=== PATIENT | male | born 1975 | race African-American/Black ===

== ENCOUNTER 2024-04-13 14:44 | Emergency (ER) | payer OTHER, SELFPAY ==
--- NOTE | ~2024-04-13 | XR_ITS ---
EXAMINATION: XR ANKLE, RIGHT CLINICAL INFORMATION: Fall COMPARISON: None available. TECHNIQUE: AP, lateral, and mortise views of the right ankle. FINDINGS: Minimally displaced avulsion fracture at the base of the 5th metatarsal. Lateral soft tissue swelling. Ankle mortise is preserved. No additional fractures. XR/XR ankle RT min 3V IMPRESSION: Minimally displaced avulsion fracture at the base of the 5th metatarsal.
[2024-04-13 14:48] VITALS: BP 138/57; PULSE 69; RESP 18; TEMP 36.7; O2SAT 98; BMI 28.5
--- NOTE | 2024-04-13 15:03 | PC.NURSE ---
xray completed at this time.
--- NOTE | 2024-04-13 15:18 | ED_ITS ---
HPI - Extremity Injury (Lower) General Chief Complaint: Extremity Injury, Lower Stated Complaint: r ankle inj at work fell down stairs Time Seen by Provider: 04/13/24 15:02 Source: patient Mode of arrival: ambulatory Limitations: no limitations History of Present Illness ED Provider: César KWAN HPI Narrative: 48 yo m presents w/ right foot and ankle pain since yesterday. Reports he sl ipped down the stairs, twisted his right ankle. No head strike, no LOC, not on thinners. Patient has been wearing a boot and jovi wrap with little to no relief. No preceding sx to fall such as cp, sob, dizziness. Patient reprots its worse w/ movement, better at rest. No numbness or tingling. Denies any injury to chest, abd/pelvis. Denies cp, sob, nausea, vomiting, headache, vision changes, dizzines s, weakness. Related Data Previous Rx's ?Medication ?Instructions ?Recorded naproxen 500 mg tablet 500 mg PO BID PRN pain #14 tabs 04/13/24 Allergies Allergy/AdvReac Type Severity Reaction Status Date / Time Penicillins Allergy Unknown Verified 04/13/24 14:49 Review of Systems Review of Systems: Yes all other systems are reviewed and are negative [facility] Past Medical History Attestation statement: The following information was validated with the patient. Source: old records reviewed and nursing notes reviewed Social History Social History Advance Directives: No Advance Directives Information Provided: No Do you have a plan to hurt others: No Plan Physical Exam Vital Signs: Vital Signs: Last Vital Signs Temp 98.1 F 04/13/24 14:48 Pulse 69 04/13/24 14:48 Resp 18 04/13/24 14:48 BP 138/57 L 04/13/24 14:48 Pulse Ox 98 04/13/24 14:48 O2 Del Method Room Air 04/13/24 14:48 BMI result Body Mass Index 28.5 vss Appearance: Alert.? Oriented X3.? No acute distress.? Head: Normocephalic, atraumatic, no step-offs or deformities Eyes: Pupils equal, round and reactive to light.? ENT: Pharynx normal.? Neck: Normal inspection.? Neck supple.? CVS: Normal heart rate and rhythm.? Pulses normal.? Respiratory: No respiratory distress.? Breath sounds normal.? Abdomen: Soft and nontender.? Skin: Skin warm and dry.? Normal skin color.? Normal skin turgor.? Extremities: No lower extremity edema.? No calf ttp. 5/5 strength to bilateral upper and lower extremities slight discomfort with range of motion of right foot and ankle, tenderness to palpation to dorsal aspect of right foot and lateral aspect of ankle. No overlying skin changes, ecchymosis or swelling. 2+ dorsalis pedis, anterior tibialis and posterior tibialis pulses equal bilateral. Normal distal sensation to bilateral lower extremities. Back: No midline tenderness, no C-spine tenderness, full range of motion, no CVA tenderness bilaterally Neuro: Oriented X 3.? No motor deficit.? No sensory deficit. CN 2-12 intact Course Reevaluation(s) Reevaluation #1: XR/XR ankle RT min 3V IMPRESSION: Minimally displaced avulsion fracture at the base of the 5th metatarsal. Patient in walking boot. Will give crutches. For ambulation. Toradol for pain for home Ortho follow up. Educated patient on diagnosis and treatment plan, answered all question, patient verbalizes understanding. At this time patient will be discharged home, advised to return with new or worsening symptoms. Educated on worrisome signs and symptoms and when to return. At this time I feel comfortable discharge home. Time: 15:26 Medical Decision Making Medical Decision Making [facility] Narrative: 1514 48-year-old male presents with right foot and ankle pain status post rolling it after slipping down a few stairs last night. Physical exam 5/5 strength to bilateral upper and lower extremities slight discomfort with range of motion of right foot and ankle, tenderness to palpation to dorsal aspect of right foot and lateral aspect of ankle. No overlying skin changes, ecchymosis or swelling. 2+ dorsalis pedis, anterior tibialis and posterior tibialis pulses equal bilateral. Normal distal sensation to bilateral lower extremities. History and physical exam concerning for sprain or strain versus fracture versus dislocation. Unlikely neurovascular compromise acute threat to limb. Plan imaging, Toradol for pain Differential Diagnosis Differential Diagnoses: The differential diagnosis associated with the presentation includes History and physical exam concerning for sprain or strain versus fracture versus dislocation. Unlikely neurovascular compromise acute threat to limb. Admission/Observation Consideration of admission/observation: Escalation of care including admission/observation considered unlikley Independent Interpretation I performed an independent interpretation of an: Plain X-Ray ( XR/XR ankle RT min 3V IMPRESSION: Minimally displaced avulsion fracture at the base of the 5th metatarsal. ) Radiology Impression Discussion of test interpretation with radiology: I have reviewed the radiologist's reading. Prescription Management I considered prescription management with: Pain Medication Discharge Plan Discharge Clinical Impression: Avulsion fracture Patient Disposition: Home, Self-Care Additional Instructions: Take your medications as prescribed. If you were prescribed antibiotics today, it is important that you take your medication to their entirety, do not skip any doses, do not finish them early. Follow-up with your primary care provider this week. Return to the emergency department with new or worsening symptoms. Such as fevers, chills, chest pain, shortness of breath, nausea, vomiting, dizziness, headache, vision changes, lethargy In case of emergency call 911 Prescriptions: New naproxen 500 mg tablet 500 mg PO BID PRN (Reason: pain) Qty: 14 0RF Rx Instructions: Take with food Referrals: Physician,None [Primary Care Provider] - 2 days [facility] [place] [Provider Group] - 1 week Stand Alone Forms: Work/School Release Print Language: Mohawk
--- NOTE | 2024-04-13 15:31 | PC.NURSE ---
pt reporting he does not want medication prescribed by provider at this time.
--- NOTE | 2024-04-13 15:38 | PC.NURSE ---
pt declined clutches.
[2024-04-13 15:42] VITALS: BP 138/57; PULSE 69; RESP 18; TEMP 36.7; O2SAT 98
== END 2024-04-13 15:42 | disposition home or self-care (01) ==
PROVIDERS: Emergency Provider Emergency Medicine
DX: S92.351A Displaced fracture of fifth metatarsal bone, right foot, initial encounter for closed fracture (principal); W10.8XXA Fall (on) (from) other stairs and steps, initial encounter; Y93.F9 Activity, other caregiving; Y92.099 Unspecified place in other non-institutional residence as the place of occurrence of the external cause; Y99.0 Civilian activity done for income or pay
CPT/HCPCS: 73610; 99282; 99283